=== PATIENT | female | born 1990 | race Hispanic/Latino ===

== ENCOUNTER 2018-04-27 19:22 | Observation (INO) | payer MEDICAID ==
[~2018-04-27] VITALS: Ht 154.9 cm; Wt 110.2 kg
[2018-04-27] MEDS ORDERED: LACTATED RINGERS 1000ML 1,000 ML IV PRN (20:02)
[2018-04-27 21:07] LABS: APPEARANCE,URINE Cloudy (CLEAR); BILIRUBIN,URINE Moderate (NEGATIVE); COLOR,URINE Dark Yellow (YELLOW); GLUCOSE, URINE (UA) Negative (NEGATIVE); KETONES,URINE Negative (NEGATIVE); LEUKOCYTE ESTERASE ,URINE Trace (NEGATIVE); NITRATE,URINE Negative (NEGATIVE); OCCULT BLOOD,URINE Large (NEGATIVE); PROTEIN,URINE POS 1+ (NEGATIVE)
[2018-04-27 21:16] LABS: AMPHET/METH SCREEN,URINE NEGATIVE (NEGATIVE); BARBITURATE SCREEN, URINE NEGATIVE (NEGATIVE); BENZODIAZEPINES SCREEN,URINE NEGATIVE (NEGATIVE); CANNABINOID SCREEN,URINE NEGATIVE (NEGATIVE); COCAINE SCREEN,URINE NEGATIVE (NEGATIVE); OPIATE SCREEN,URINE NEGATIVE (NEGATIVE); PHENCYCLIDINE SCREEN,URINE NEGATIVE (NEGATIVE)
[2018-04-27 21:22] LABS: WBC,URINE 0-1 /HPF (0-1)
[2018-04-27 21:23] LABS: BACTERIA,URINE Few /HPF (None Seen)
== END 2018-04-27 22:15 | disposition home or self-care (01) ==
LOC: EDH 19:22 → LDH 19:34
DX: O42.913 Preterm premature rupture of membranes, unspecified as to length of time between rupture and onset of labor, third trimester (principal); O26.893 Other specified pregnancy related conditions, third trimester; R10.9 Unspecified abdominal pain; O62.9 Abnormality of forces of labor, unspecified; Z3A.36 36 weeks gestation of pregnancy; Z79.899 Other long term (current) drug therapy
CPT/HCPCS: 80305; 81001; 99284; G0378 ×3; 96360; 96361

== ENCOUNTER 2018-04-28 12:00 | Observation (INO) | payer MEDICAID ==
[~2018-04-28] VITALS: Ht 154.9 cm; Wt 105.2 kg
[2018-04-28 13:05] VITALS: BP 120/70
[2018-05-03] MEDS ORDERED: CETI10CA5 PO (06:59)
[2018-05-03] MEDS ORDERED: PREN-196 PO (06:59)
[2018-05-03] MEDS ORDERED: CHOL5POW MC (06:59)
== END 2018-04-28 13:15 | disposition home or self-care (01) ==
LOC: EDH 12:00 → LDH 12:01
DX: O26.23 Pregnancy care for patient with recurrent pregnancy loss, third trimester (principal); Z3A.36 36 weeks gestation of pregnancy
CPT/HCPCS: 99284; G0378

== ENCOUNTER 2018-07-13 07:18 | Day surgery (SDC) | payer MEDICAID ==
[2018-07-10 11:11] VITALS: BP 116/63
[2018-07-10 11:30] LABS: BASOPHILS % (AUTO) 0.8 % (0.0-5.0); EOSINOPHILS % (AUTO) 0.2 % (0.0-8.0); HEMATOCRIT 35.5 % (36-48); LYMPHOCYTES % (AUTO) 30.3 % (21.0-51.0); MEAN CORPUSCULAR HEMOGLOBIN 30.4 pg (27.0-33.0); MEAN CORPUSCULAR VOLUME 89.5 fL (79-99); MONOCYTES % (AUTO) 7.9 % (3.0-13.0); NEUTROPHILS % (AUTO) 60.8 % (40.0-77.0); PLATELET COUNT (AUTO) 295 K/uL (130-400); RED BLOOD CELL COUNT(AUTO) 3.97 MIL/uL (4.00-5.50); RED CELL DISTRIBUTION WIDTH 13.2 % (11.0-15.5); WHITE BLOOD COUNT (AUTO) 3.3 K/uL (4.8-10.8)
--- NOTE | 2018-07-10 15:01 | NUR ---
[facility] INFORMED DR. FRANCIS OF ABNORMAL WBC. NO ORDERS RECEIVED. PROCEED WITH PLANNED PROCEDURE.
[~2018-07-13] VITALS: Ht 157.5 cm; Wt 97.3 kg
[2018-07-13] VITALS (18 sets, daily range): BP systolic 105–136; BP diastolic 54–81
[~2018-07-13 07:18] MED LIST: LACTATED RINGERS 1000ML 1,000 ML IV SCH
[2018-07-13] MEDS ORDERED: MIDAZOLAM HCL 1 MG/ML 2ML VIAL ONE (08:54)
[2018-07-13] MEDS ORDERED: ONDANSETRON HCL 4 MG/2 ML VIAL ONE (08:54)
[2018-07-13] MEDS ORDERED: ROCURONIUM 10MG/1ML SYR 10 MG/ML ML ONE (08:57)
[2018-07-13] MEDS ORDERED: PROPOFOL 10 MG/ML 20ML VIAL IV ONE (08:57)
[2018-07-13] MEDS ORDERED: FENTANYL CITRATE PF 50 MCG/1 ML 2ML VIAL ONE ×2 (09:00→09:56)
[2018-07-13] MEDS ORDERED: EPHEDRINE SULFATE 50 MG/ML AMPULE ONE (09:22)
[2018-07-13] MEDS ORDERED: NEOSTIGMINE 5MG/5ML SYR IV ONE (09:38)
[2018-07-13] MEDS ORDERED: GLYCOPYRROLATE 1 MG/5 ML SYRINGE ONE (09:38)
[2018-07-13] MEDS ORDERED: MEPERIDINE-PF 25 MG/ML SYG ONE ×3 (09:49→10:17)
== END 2018-07-13 11:45 | disposition home or self-care (01) ==
LOC: DAH 07:18
PROVIDERS: ATTEND Specialist
DX: Z30.2 Encounter for sterilization (principal); Z79.899 Other long term (current) drug therapy; Z98.890 Other specified postprocedural states; Z68.39 Body mass index [BMI] 39.0-39.9, adult
CPT/HCPCS: 36415 ×2; 58671; 84703; 85025; 86850 ×2; 86900 ×2; 86901 ×2; A4215; A4264; A4351; C1769 ×3; J2175 ×3; J2250; J2405; J2704; J2710; J3010 ×2; J3490 ×2; J7030; J7120

== ENCOUNTER → 2022-01-08 | Outpatient (CLI) | payer BC | END | disposition home or self-care (01) | LOC: RAH 10:00 | PROVIDERS: ATTEND Family Medicine | DX: M51.16 Intervertebral disc disorders with radiculopathy, lumbar region (principal); M48.061 Spinal stenosis, lumbar region without neurogenic claudication; M51.25 Other intervertebral disc displacement, thoracolumbar region | CPT/HCPCS: 72148 ==